=== PATIENT | male | born 1970 ===

== ENCOUNTER 2018-08-05 12:11 | Emergency (ER) | END 2018-08-05 13:10 | disposition home or self-care (01) | LOC: MADERS 12:11 | DX: S16.1XXA Strain of muscle, fascia and tendon at neck level, initial encounter (principal); S29.012A Strain of muscle and tendon of back wall of thorax, initial encounter; W22.8XXA Striking against or struck by other objects, initial encounter | CPT/HCPCS: 99283 ==